=== PATIENT | male | born 1965 | race Caucasian/White ===

== ENCOUNTER 2017-07-10 14:08 | Emergency (ER) | payer OTHER ==
[~2017-07-10] VITALS: Ht 167.6 cm; Wt 62.0 kg
[~2017-07-10 14:08] MED LIST: ERYT.5%O RIGHT EYE; OXYC-360 PO; Z.0.NO CURRENT MEDS
[2017-07-10 14:27] VITALS: BP 144/81; PULSE 88; RESP 15; TEMP 98.3; O2SAT 97
--- NOTE | 2017-07-10 14:43 | PD ---
HPI Chief Complaint: Psychiatric Symptoms Time Seen by Provider: 14:17 Travel History International Travel<30 days: No Contact w/Intl Traveler<30days: No Traveled to known affect area: No History of Present Illness HPI This patient is brought in under police Harris act. Reportedly had suicidal thoughts after a breakup with his girlfriend. He says he took a couple pills of some redness his medication this morning when he felt suicidal. He thinks they were blood pressure pills. He has no idea what they were or what they were called. Blood pressure is 144/81. Says he doesn't remember what time he took them. He is very uncooperative. Severity is moderate. No alleviating factors. No exacerbating factors. Duration one day. He denies drug use PFSH Past Medical History Medical History: Denies Significant Hx Past Surgical History Oral Surgery: Yes (wisdom teeth extration) Other Surgery: Yes (hernia repair) Social History Alcohol Use: Yes Tobacco Use: Yes (1.5 ppd) Substance Use: Yes (marijuana) Allergies-Medications (Allergen,Severity, Reaction): Coded Allergies: No Known Allergies (Verified Adverse Reaction, Unknown, 07/10/17) Reported Meds & Prescriptions Reported Meds & Active Scripts Active No Active Prescriptions or Reported Medications Review of Systems General / Constitutional: No: Fever Eyes: No: Visual changes HENT: No: Headaches Cardiovascular: No: Chest Pain or Discomfort Respiratory: No: Shortness of Breath Gastrointestinal: No: Abdominal Pain Genitourinary: No: Dysuria Musculoskeletal: No: Pain Skin: No Rash Neurologic: No: Weakness Psychiatric: Positive: Depression, Suicidal Ideations Endocrine: No: Polydipsia Hematologic/Lymphatic: No: Easy Bruising Physical Exam Narrative GENERAL: Well-nourished, well-developed patient in no apparent distress. SKIN: Focused skin assessment reveals no rash and nodules. Skin is Warm and dry. HEAD: Atraumatic. Normocephalic. EYES: Pupils equal and round. No scleral icterus. No injection or drainage. ENT: No nasal bleeding or discharge. Mucous membranes pink and moist. NECK: Trachea midline. No JVD. CARDIOVASCULAR: Regular rate and rhythm. No murmur appreciated. RESPIRATORY: No accessory muscle use. Clear to auscultation. Breath sounds equal bilaterally. GASTROINTESTINAL: Abdomen soft, non-tender, nondistended. Hepatic and splenic margins not palpable. MUSCULOSKELETAL: No obvious deformities. No clubbing. No cyanosis. No edema. NEUROLOGICAL: Awake and alert. No obvious cranial nerve deficits. Motor grossly within normal limits. Normal speech. PSYCHIATRIC: Depressed mood and flat affect; insight and judgment poor. Data Data Last Documented VS Vital Signs Date Time Temp Pulse Resp B/P (MAP) Pulse Ox O2 Delivery O2 Flow Rate FiO2 07/10/17 15:45 87 23 124/72 (89) Room Air 07/10/17 14:27 98.3 97 Orders Orders Complete Blood Count With Diff (07/10/17 14:28) Basic Metabolic Panel (Bmp) (07/10/17 14:28) Thyroid Stimulating Hormone (07/10/17 14:28) Electrocardiogram (07/10/17 14:) Iv Access Insert/Monitor (07/10/17 14:) Ecg Monitoring (07/10/17 14:28) Psych Screen (07/10/17 14:) Drug Screen, Random Urine (07/10/17 14:28) Alcohol (Ethanol) (07/10/17 14:28) Restraints Non-Violent VIKA.Q3H (07/10/17 15:35) Labs Laboratory Tests Test 07/10/17 14:50 White Blood Count 12.3 TH/MM3 Red Blood Count 5.66 MIL/MM3 Hemoglobin 18.0 GM/DL Hematocrit 52.8 % Mean Corpuscular Volume 93.3 FL Mean Corpuscular Hemoglobin 31.9 PG Mean Corpuscular Hemoglobin Concent 34.2 % Red Cell Distribution Width 15.1 % Platelet Count 305 TH/MM3 Mean Platelet Volume 7.8 FL Neutrophils (%) (Auto) 74.3 % Lymphocytes (%) (Auto) 12.4 % Monocytes (%) (Auto) 5.3 % Eosinophils (%) (Auto) 6.6 % Basophils (%) (Auto) 1.4 % Neutrophils # (Auto) 9.2 TH/MM3 Lymphocytes # (Auto) 1.5 TH/MM3 Monocytes # (Auto) 0.6 TH/MM3 Eosinophils # (Auto) 0.8 TH/MM3 Basophils # (Auto) 0.2 TH/MM3 CBC Comment AUTO DIFF Differential Comment AUTO DIFF CONFIRMED Blood Urea Nitrogen 9 MG/DL Creatinine 0.81 MG/DL Random Glucose 79 MG/DL Calcium Level 8.6 MG/DL Sodium Level 140 MEQ/L Potassium Level 3.7 MEQ/L Chloride Level 108 MEQ/L Carbon Dioxide Level 22.7 MEQ/L Anion Gap 9 MEQ/L Estimat Glomerular Filtration Rate 100 ML/MIN Thyroid Stimulating Hormone 3rd Gen 0.309 uIU/ML Ethyl Alcohol Level 192 MG/DL MDM Medical Decision Making Medical Screen Exam Complete: Yes Emergency Medical Condition: Yes Medical Record Reviewed: Yes Differential Diagnosis Suicidal ideation, depression, adjustment disorder, substance induced mood disorder Narrative Course I have reviewed the patient's electronic medical record. IV placed CBC is normal Metabolic profile is normal TSH is borderline low Alcohol is 192 Tox screen is ordered and pending Ordered psychiatric evaluation as he is here under the Harris act Initial blood pressure is 144/81 and will be monitored closely He has no tachycardia nor hypotension Unclear if he truly took some extra blood pressure pills or not. I observed him for over 2 hours and he remains asymptomatic I don't have any clinical suspicion of significant overdose of antihypertensives He can't provide any details of what he might of took Is medically stable Awaiting psychiatric evaluation He is acutely intoxicated of alcohol which will explain his uncooperative behavior Restraints were placed for his safety and the fact he was disrupting care by pulling his IV out etc. Should be able to be gradually withdrawn as he kevon up Despite his claims that the cat made them, he has suspicious superficial cuts on his left wrist suggesting suicidal gesture I would recommend psychiatric hospitalization today but we are awaiting psychiatric eval Diagnosis Primary Impression: Depression with suicidal ideation Additional Impression: Alcohol intoxication Qualified Codes: F10.920 - Alcohol use, unspecified with intoxication, uncomplicated Scripts No Active Prescriptions or Reported Meds Ellis Montoya MD Jul 10, 2017 14:43
[2017-07-10 15:22] LABS: AUTOMATED NEUTROPHIL # 9.2 TH/MM3 (1.8-7.7); BASOPHIL # 0.2 TH/MM3 (0-0.2); BASOPHIL % 1.4 % (0.0-2.0); EOSINOPHIL # 0.8 TH/MM3 (0-0.4); EOSINOPHIL % 6.6 % (0.0-4.0); HEMATOCRIT 52.8 % (39.0-51.0); LYMPH % 12.4 % (9.0-44.0); LYMPHOCYTE # 1.5 TH/MM3 (1.0-4.8); MEAN CELL VOLUME 93.3 FL (80.0-100.0); MEAN CORPUSCULAR HEMOGLOBIN 31.9 PG (27.0-34.0); MEAN CORPUSCULAR HGB CONC 34.2 % (32.0-36.0); MONO % 5.3 % (0.0-8.0); NEUT % 74.3 % (16.0-70.0); PLATELET COUNT 305 TH/MM3 (150-450); RED BLOOD COUNT 5.66 MIL/MM3 (4.50-5.90); RED CELL DISTRIBUTION WIDTH 15.1 % (11.6-17.2); WHITE BLOOD COUNT 12.3 TH/MM3 (4.0-11.0)
[2017-07-10 15:25] LABS: HEMO FLAGS AUTO DIFF
[2017-07-10 15:43] LABS: BICARBONATE 22.7 MEQ/L (21.0-32.0); POTASSIUM 3.7 MEQ/L (3.5-5.1)
[2017-07-10 15:45] VITALS: BP 124/72; PULSE 87; RESP 23
[2017-07-10 16:01] LABS: SCAN/DIFF AUTO DIFF CONFIRMED
[2017-07-10 18:20] VITALS: BP 122/70; PULSE 96; RESP 18; TEMP 98.3; O2SAT 97
--- NOTE | 2017-07-10 20:37 | PD ---
Physical Exam Narrative I was asked by the psych department to discharge patient after patient was evaluated and Harris acted lifted by psych. Patient was previously medically cleared by previous provider. Please see their documentation for full H&P. Patient denies any homicidal or suicidal ideations. Denies any medical concerns at this time. Data Data Last Documented VS Vital Signs Date Time Temp Pulse Resp B/P (MAP) Pulse Ox O2 Delivery O2 Flow Rate FiO2 07/10/17 18:20 98.3 96 18 122/70 (87) 97 Room Air Orders Orders Complete Blood Count With Diff (07/10/17 14:28) Basic Metabolic Panel (Bmp) (07/10/17 14:28) Thyroid Stimulating Hormone (07/10/17 14:28) Electrocardiogram (07/10/17 14:28) Iv Access Insert/Monitor (07/10/17 14:28) Ecg Monitoring (07/10/17 14:28) Psych Screen (07/10/17 14:28) Drug Screen, Random Urine (07/10/17 14:28) Alcohol (Ethanol) (07/10/17 14:28) Restraints Non-Violent VIKA.Q3H (07/10/17 15:35) Diet Regular Basic (07/10/17 Dinner) Labs Laboratory Tests Test 07/10/17 14:50 07/10/17 18:27 White Blood Count 12.3 TH/MM3 Red Blood Count 5.66 MIL/MM3 Hemoglobin 18.0 GM/DL Hematocrit 52.8 % Mean Corpuscular Volume 93.3 FL Mean Corpuscular Hemoglobin 31.9 PG Mean Corpuscular Hemoglobin Concent 34.2 % Red Cell Distribution Width 15.1 % Platelet Count 305 TH/MM3 Mean Platelet Volume 7.8 FL Neutrophils (%) (Auto) 74.3 % Lymphocytes (%) (Auto) 12.4 % Monocytes (%) (Auto) 5.3 % Eosinophils (%) (Auto) 6.6 % Basophils (%) (Auto) 1.4 % Neutrophils # (Auto) 9.2 TH/MM3 Lymphocytes # (Auto) 1.5 TH/MM3 Monocytes # (Auto) 0.6 TH/MM3 Eosinophils # (Auto) 0.8 TH/MM3 Basophils # (Auto) 0.2 TH/MM3 CBC Comment AUTO DIFF Differential Comment AUTO DIFF CONFIRMED Blood Urea Nitrogen 9 MG/DL Creatinine 0.81 MG/DL Random Glucose 79 MG/DL Calcium Level 8.6 MG/DL Sodium Level 140 MEQ/L Potassium Level 3.7 MEQ/L Chloride Level 108 MEQ/L Carbon Dioxide Level 22.7 MEQ/L Anion Gap 9 MEQ/L Estimat Glomerular Filtration Rate 100 ML/MIN Thyroid Stimulating Hormone 3rd Gen 0.309 uIU/ML Ethyl Alcohol Level 192 MG/DL Urine Opiates Screen NEG Urine Barbiturates Screen NEG Urine Amphetamines Screen NEG Urine Benzodiazepines Screen NEG Urine Cocaine Screen NEG Urine Cannabinoids Screen POS MDM Supervised Visit with CALIN: No Narrative Course Patient in no obvious distress upon re-evaluation. Any questions/concerns in reference to patient diagnosis/condition discussed and clarified prior to patient's discharge. Reinforced sheer importance of close follow up with patient 's primary physician or primary care clinic. Instructed patient to return to ED immediately, if symptoms return/worsen. Patient showed understanding of above instructions. Further instructions and recommendations were detailed in discharge paperwork. Patient ambulated without difficulty out of ED at discharge. Diagnosis Primary Impression: Depression with suicidal ideation Additional Impression: Alcohol intoxication Qualified Codes: F10.920 - Alcohol use, unspecified with intoxication, uncomplicated Referrals: [facility] Patient Instructions: General Instructions Additional Instruction: Follow-up with your primary care physician as needed. Return to the emergency department for any emergent concerns. Scripts No Active Prescriptions or Reported Meds Disposition: 01 DISCHARGE HOME Condition: Stable Mars Nunez Jul 10, 2017 20:37
--- NOTE | 2017-07-10 20:47 | PD ---
History of Present Illness Chief Complaint: Psychiatric Symptoms Time Seen by Provider: 20:15 Travel History International Travel<30 Days: No Contact w/Intl Traveler<30days: No Known affected area: No Legal Status Legal Status: Harris Act History of Present Illness: History of Present Illness HPI This patient is a 52-year-old male with no reported history of psychiatric illness who is under a Harris initiated by law enforcement. The Harris act alleges that he called his sister in [place] and told her that he was taking some blood pressure pills and that he was sad over the break up with his girlfriend. Upon arrival to the ED he reported to the ED provider that he had taken some left pressure medicine in the morning when he felt suicidal. However the patient presented with a blood pressure of 144/81. Further blood pressure readings did not deviate much from this number which makes it unlikely that he actually took such medications. Patient also admits that he was drinking when he called his sister and his blood alcohol level upon arrival to the ED was 192. The patient was monitored in a secure environment and was allowed to sober up clinically. He presented no behavioral concerns and no suicidality. Electronic medical record is review no previous contact with [facility] psychiatry Department. Patient is seen with fuel cell technician Ellis quezada. The patient is alert, oriented , cooperative. He is clinically sober. Clear logical speech and no gait impairment. The patient presents no indication that he is experiencing any psychosis. No diane. He denies that he told his sister that he was taking any extra pills and he denies any suicidal intent. He further states "I don't want to . I am starting a new job on Wednesday and I have waited for this job for 3- 1/2 years." He admits that he is feeling sad over the break up of his relationship but at this time he is future oriented and continues to deny any suicidal or homicidal ideation, intent or plan. He also denies that he drinks on a daily basis. PFSH Past Medical History Medical History: Denies Significant Hx Past Surgical History Oral Surgery: Yes (wisdom teeth extration) Other Surgery: Yes (hernia repair) Psychiatric History Psychiatric History History of Inpatient Treatment: No Guns or firearms in home: No Social History Single male who was living with his girlfriend for the past year. 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 Hx Alcohol Use: Yes Hx Tobacco Use: Yes (1.5 ppd) Hx Substance Use: Yes (marijuana) Substance Use Type: Alcohol, Marijuana Hx of Substance Use Treatment: No Family Psychiatric History Negative Allergies-Medications (Allergen,Severity, Reaction): Coded Allergies: No Known Allergies (Verified Adverse Reaction, Unknown, 07/10/17) Reported Meds & Prescriptions Reported Meds & Active Scripts Active No Active Prescriptions or Reported Medications Review of Systems Except as stated in HPI: all other systems reviewed are Neg Mental Status Examination Appearance: Appropriate Consciousness: Alert Orientation: x4 Motor Activity: Normal gait Speech: Unremarkable Language: Adequate Fund of Knowledge: Adequate Attention and Concentration: Adequate Memory: Unremarkable Mood: Appropriate Affect: Appropriate Thought Process & Associations: Intact, Logical, Goal directed Thought Content: Appropriate Hallucination Type: None Delusion Type: None Suicidal Ideation: No Suicidal Plan: No Suicidal Intention: No Homicidal Ideation: No Homicidal Plan: No Homicidal Intention: No Insight: Adequate Judgment: Adequate MDM Medical Decision Making Medical Record Reviewed: Yes Assessment/Plan This patient is a 52-year-old male with no reported history of psychiatric illness who is under a Harris initiated by law enforcement. The Harris act alleges that he called his sister in [place] and told her that he was taking some blood pressure pills and that he was sad over the break up with his girlfriend. Patient was under the influence of alcohol when he made that call. He was allowed to sober up clinically at which point he denies any suicidal or homicidal ideation, intent or plan. The patient is future oriented and is looking forward to starting a new job on Wednesday. He also tells me that he will receive 13 visits to a therapist as part of his compensation package at his new job and plans to begin counseling. The patient is cognitively intact. He contracts for safety and agrees to call the police or come back to the emergency department as part of a safety plan. There is no evidence of any unstable mental illness as defined under the Harris act. The Harris act is lifted. Psychoeducation and supportive interventions are provided. Encourage abstinence from alcohol. Encourage counseling on an outpatient basis. Cleared psychiatrically for discharge from ED. Orders Orders Complete Blood Count With Diff (07/10/17 14:28) Basic Metabolic Panel (Bmp) (07/10/17 14:28) Thyroid Stimulating Hormone (07/10/17 14:28) Electrocardiogram (07/10/17 14:28) Iv Access Insert/Monitor (07/10/17 14:28) Ecg Monitoring (07/10/17 14:28) Psych Screen (07/10/17 14:28) Drug Screen, Random Urine (07/10/17 14:28) Alcohol (Ethanol) (07/10/17 14:28) Restraints Non-Violent VIKA.Q3H (07/10/17 15:35) Diet Regular Basic (07/10/17 Dinner) Results Vital Signs Date Time Temp Pulse Resp B/P (MAP) Pulse Ox O2 Delivery O2 Flow Rate FiO2 07/10/17 18:20 98.3 96 18 122/70 (87) 97 Room Air 07/10/17 15:45 87 23 124/72 (89) Room Air 07/10/17 14:27 98.3 88 15 144/81 (102) 97 Room Air Laboratory Tests Test 07/10/17 14:50 07/10/17 18:27 White Blood Count 12.3 Red Blood Count 5.66 Hemoglobin 18.0 Hematocrit 52.8 Mean Corpuscular Volume 93.3 Mean Corpuscular Hemoglobin 31.9 Mean Corpuscular Hemoglobin Concent 34.2 Red Cell Distribution Width 15.1 Platelet Count 305 Mean Platelet Volume 7.8 Neutrophils (%) (Auto) 74.3 Lymphocytes (%) (Auto) 12.4 Monocytes (%) (Auto) 5.3 Eosinophils (%) (Auto) 6.6 Basophils (%) (Auto) 1.4 Neutrophils # (Auto) 9.2 Lymphocytes # (Auto) 1.5 Monocytes # (Auto) 0.6 Eosinophils # (Auto) 0.8 Basophils # (Auto) 0.2 CBC Comment AUTO DIFF Differential Comment AUTO DIFF CONFIRMED Blood Urea Nitrogen 9 Creatinine 0.81 Random Glucose 79 Calcium Level 8.6 Sodium Level 140 Potassium Level 3.7 Chloride Level 108 Carbon Dioxide Level 22.7 Anion Gap 9 Estimat Glomerular Filtration Rate 100 Thyroid Stimulating Hormone 3rd Gen 0.309 Ethyl Alcohol Level 192 Urine Opiates Screen NEG Urine Barbiturates Screen NEG Urine Amphetamines Screen NEG Urine Benzodiazepines Screen NEG Urine Cocaine Screen NEG Urine Cannabinoids Screen POS Diagnosis Primary Impression: Alcohol intoxication Additional Impression: Alcohol-induced mood disorder Psychiatrically Cleared: Yes Med/ Other Pt Specific Info: No Meds Exist/No RX given Prescriptions No Active Prescriptions or Reported Meds Disposition: 01 DISCHARGE HOME Condition: Stable Problem Qualifiers Primary Impression: Alcohol intoxication Qualified Codes: F10.920 - Alcohol use, unspecified with intoxication, uncomplicated Carole Manley [facility] Jul 10, 2017 20:47
--- NOTE | 2017-07-11 13:09 | EKG ---
Date Performed: 07/10/2017 Time Performed: 14:49:10 PTAGE: 52 years EKG: Sinus rhythm NORMAL ECG NO PREVIOUS TRACING DOCTOR: Magdi Cabrera Interpretating Date/Time 07/11/2017 13:07:11
== END 2017-07-10 21:27 | disposition home or self-care (01) ==
LOC: NEPD 14:08 → NEPJ 21:27
DX: F32.9 Major depressive disorder, single episode, unspecified (principal); R45.851 Suicidal ideations; F10.129 Alcohol abuse with intoxication, unspecified
CPT/HCPCS: 80048; 80307; 84443; 85025; 93005; 99285